=== PATIENT | male | born 1950 | race Caucasian/White ===

== ENCOUNTER 2024-07-23 13:05 | Outpatient (CLI) | payer BC, MEDICARE | END 2024-07-23 13:06 | disposition home or self-care (01) | LOC: CSHCT 13:05 | PROVIDERS: ATTEND Internal Medicine Hematology & Oncology | DX: C83.31 Diffuse large B-cell lymphoma, lymph nodes of head, face, and neck (principal) | CPT/HCPCS: 36415; 70491; 71260; 74177; 82565 ==